=== PATIENT | female | born 1965 | race Caucasian/White ===

== ENCOUNTER 2024-06-26 08:16 | Outpatient (AMB) | payer OTHER, SELFPAY ==
--- NOTE | 2024-06-26 08:17 | AM.OFFWIN_ITS ---
Intake Vital Signs 06/26/24 08:18 Height 5 ft 10 in Weight 271 lb BMI 38.9 BP 118/80 Blood Pressure Location Lt brachial Position Sitting Pulse 115 H Pulse Source Pulse Oximeter Temp 98.6 F Temp Source Oral Pulse Oximetry (%) 96 Oxygen Delivery Method Room Air Intake Visit Reasons: EP fever, throwing up, ? sinus infection Intake Note: Patient here puffiness in face, vomiting, congestion that comes and goes,cough and low grade fevers for about 2 days. Patient Tobacco Use Status: Never used Tobacco Allergies No Known Allergies [No Known Allergies*] Allergy (Unverified 06/26/24 08:19) Do you need a note to return to daycare/school/sports/work: No HPI EP fever, throwing up, ? sinus infection HPI Details This note is constructed using voice recognition software. While every effort has been made to ensure accuracy, chief digital officer errors may have been included. The patient is a 58 year old female who presents to the clinic today with sinus congestion, vomiting bile, low-grade fever for the past 3 days. She notes that she has an extensive history of allergies, typically does have symptoms this time per year, she typically treats with Claritin [id number]. She has not tried anything for her additional symptoms. She denies cough, shortness of caleb th. [facility] Social History Patient Tobacco Use Status: Never used Tobacco Review of Systems Const All systems reviewed & are unremarkable except as noted in HPI and below Physical Exam Vital Signs: Last Vital Signs Temp 98.6 F 06/26/24 08:18 Pulse 115 H 06/26/24 08:18 BP 118/80 06/26/24 08:18 Pulse Ox 96 06/26/24 08:18 Oxygen Delivery Method Room Air 06/26/24 08:18 BMI result Body Mass Index 38.9 Const General: cooperative, healthy appearing, comfortable and no acute distress Orientation/consciousness: patient oriented x3 Limitations: no limitations HEENT Head: Yes normal to inspection Ears: hearing grossly normal bilaterally, external ears normal and TM abnormal retracted General nose exam: Normal external nose present, No nasal discharge present and Abnormal mucous membranes and turbinates present boggy and pale Face and sinus: Yes normal facial exam and Yes sinuses nontender Mouth: Normal oral and palatal mucosa present and moist mucous membranes Throat: Yes tonsils normal, Yes uvula midline, Yes posterior oropharynx abnormal (Erythema), Yes postnasal drainage and Yes cobblestoning Eyes General: appearance normal, both eyes and all related structures Neck Neck: Yes normal visual inspection Resp Effort & Inspection: normal respiratory effort, able to speak in complete sentences, Actively coughing, no respiratory distress, not tachypneic, no tripod positioning and no use of accessory muscles Auscultation: clear to auscultation bilaterally Cardio Rate: regular rate Rhythm: regular rhythm Heart sounds: normal S1 and S2 Skin General skin exam: no rashes or lesions noted Neuro General: patient oriented x3 Extrem General: Yes normal to inspection and Yes no clubbing, cyanosis or edema Assessment & Plan Assessment & Plan (1) Allergic rhinitis: Code(s): J30.9 - Allergic rhinitis, unspecified Qualifiers: Allergic rhinitis trigger: pollen Allergic rhinitis seasonality: seasonal Qualified Code(s): J30.1 - Allergic rhinitis due to pollen Plan: Supportive measures encouraged and reviewed. Advised patient to try a Flonase nasal spray and second-generation antihistamine such as Zyrtec, Claritin, Michaelle or similar. Advised consideration of sinus rinse if needed. Advised patient to follow up with primary care provider with worsening or failure to resolve. We will treat symptomatically with a short burst of prednisone as well as Zofran for nausea. Plan See above for full details and plan. Medications: New prednisone 40 mg (2 x 20 mg) PO DAILY 3 days 6 tabs 0RF ondansetron 4 mg PO Q8H 3 days PRN 9 tabs 0RF nausea and vomiting Coding Level of Care Code Est Pt Level 3 (36081) Diagnoses Seasonal allergic rhinitis due to pollen J30.1 Allergic rhinitis trigger: pollen Allergic rhinitis seasonality: seasonal
[2024-06-26 08:18] VITALS: BP 118/80; PULSE 115; TEMP 37; O2SAT 96; BMI 38.9
== END 2024-06-26 08:59 | disposition home or self-care (01) ==
PROVIDERS: Visit Provider Registered Nurse
DX: J30.1 Allergic rhinitis due to pollen (principal)

== ENCOUNTER 2024-08-20 10:20 | Outpatient (AMB) | payer OTHER, SELFPAY ==
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
[2024-08-20 10:37] VITALS: BP 138/90; PULSE 115; O2SAT 98
== END 2024-08-20 11:36 | disposition home or self-care (01) ==
PROVIDERS: Visit Provider Physician Assistant
DX: M54.6 Pain in thoracic spine (principal); M54.2 Cervicalgia; V89.2XXA Person injured in unspecified motor-vehicle accident, traffic, initial encounter

== ENCOUNTER 2025-03-02 10:26 | Outpatient (AMB) | payer OTHER, SELFPAY ==
[2025-03-02 10:36] VITALS: BP 128/84; PULSE 102; TEMP 36.7; O2SAT 94; BMI 40.2
--- NOTE | 2025-03-02 10:36 | AM.OFFWIN_ITS ---
Intake Vital Signs 03/02/25 10:36 Height 5 ft 10 in Weight 280 lb BMI 40.2 BP 128/84 Blood Pressure Location Lt brachial Position Sitting Pulse 102 H Pulse Source Pulse Oximeter Temp 98.1 F Temp Source Oral Pulse Oximetry (%) 94 Oxygen Delivery Method Room Air Intake Visit Reasons: EP Cyst Intake Note: Pt presents to the office today for c/o a bump behind her right knee. Pt states she was on 02/28/25 at another urgent care and was diagnosed with a bakers cyst. Patient Tobacco Use Status: Never used Tobacco Allergies No Known Allergies [No Known Allergies*] Allergy (Unverified 03/02/25 10:38) HPI HPI Comments History of Present Illness Details History of Present Illness - The patient is a 59-year-old female pr esenting with swelling in the right leg and knee. - The swelling began over the weekend an d was diagnosed as a Gomez's cyst at a different without ultrasound confirmation. - The patient reports no pain, only disc omfort, and has been using an FERMIN bandage for support. - There is no history of smoking, cancer , or use of oral contraceptives, and no recent long travel except for regular three-hour car rides with the most recent being yesterday. - The patient has no history of blood cl ots, pulmonary embolism, or deep vein thrombosis. - Denies shortness of breath or spitting up blood. Physical Exam General: Cooperative, healthy appearing, comfortable, no acute distress and well developed Orientation: Patient oriented x3 Limitations: No limitations Head: Normal to inspection Ears: Hearing grossly normal bilaterally Nose: Normal External nose present Face and sinus: Normal facial exam Eyes: Appearance normal, both eyes and all related structures Neck: Normal visual inspection and Yes full ROM Respiratory: Normal respiratory effort and able to speak in complete sentences. Skin: No rashes or lesions noted Neuro: Patient oriented x3 Extremities: Right leg swollen, particularly at the back of the right knee, consistent with a Gomez's cyst. Upper leg also appears swollen. No pain upon flexion or squeezing, just discomfort. PFSH Social History Patient Tobacco Use Status: Never used Tobacco Review of Systems Const All systems reviewed & are unremarkable except as noted in HPI and below Physical Exam Vital Signs: Last Vital Signs Temp 98.1 F 03/02/25 10:36 Pulse 102 H 03/02/25 10:36 BP 128/84 03/02/25 10:36 Pulse Ox 94 03/02/25 10:36 Oxygen Delivery Method Room Air 03/02/25 10:36 BMI result Body Mass Index 40.2 Assessment & Plan Assessment & Plan (1) Edema of right lower leg: Code(s): R60.0 - Localized edema Plan: - Cannot PERC out, has 4 criteria. Wells Score 3 points = high risk. - An ultrasound is recommended to rule out deep vein thrombosis due to significant swelling, we will get this right now. - If a blood clot is detected, initiation of anticoagulation therapy will be considered, pt does not have PCP. - If the ultrasound confirms a Gomez's cyst, further management will be based on symptomatology and size. - The patient is advised to establish care with a primary care provider for ongoing management. - US/US venous duplex LE RT IMPRESSION: No acute deep venous thrombosis interrogated veins, right lower extremity. Negative for DVT. - patient likely has this swelling from arthritis so we will treat her for arthritis. I recommended she adjunct p.o. diclofenac with the diclofenac gel, use ice, an Fermin wrap and rest it. If after 3 days of the around the clock dosing it with the diclofenac, she still has swelling, she should go to an emergency department for further workup. Also highly recommended she obtain a PCP, I did give her phone numbers of our [place] office as well as [place]. Patient was informed and verbally consented to the use of an ambient scribe for clinic note documentation during this visit. Orders: Orders US venous duplex LE RT Today R60.0 - Localized edema Medications: New diclofenac sodium 50 mg PO Q12H PRN 20 tabs 0RF pain Coding Level of Care Code New Pt Level 4 (99692) Diagnoses Edema of right lower leg R60.0
== END 2025-03-02 11:42 | disposition home or self-care (01) ==
PROVIDERS: Visit Provider Physician Assistant
DX: R60.0 Localized edema (principal)

== ENCOUNTER → 2025-03-02 10:26 | Outpatient (BNVA) | payer OTHER, SELFPAY | PROVIDERS: Visit Provider Physician Assistant ==

== ENCOUNTER 2025-03-02 10:57 | Outpatient (REF) | payer OTHER, SELFPAY ==
--- NOTE | ~2025-03-02 | US_ITS ---
EXAMINATION: US TRIPLEX LOWER EXTREMITY, RIGHT CLINICAL INFORMATION: Swelling, pain, right lower extremity. COMPARISON: None available. TECHNIQUE: Color-flow triplex imaging with spectral analysis and compression Doppler were performed on the right lower extremity. FINDINGS: Respiratory variation, normal compression and augmented flow demonstrated throughout the interrogated common femoral vein, superficial femoral vein, profunda femoral vein, popliteal vein and midcalf peroneal and posterior tibial venous segments . There is no Gomez's cyst. US/US venous duplex LE RT IMPRESSION: No acute deep venous thrombosis interrogated veins, right lower extremity. Negative for DVT. Electronically signed by: Aashish Leal MD 03/02/2025 11:28 AM EDT
== END 2025-03-02 10:58 | disposition home or self-care (01) ==
LOC: HO.HMGCX 10:57
PROVIDERS: Visit Provider Physician Assistant
DX: R60.0 Localized edema (principal); M25.561 Pain in right knee
CPT/HCPCS: 93971

== ENCOUNTER → 2025-03-02 11:02 | Outpatient (BNV) | payer OTHER, SELFPAY | PROVIDERS: Visit Provider Radiology Diagnostic Radiology | DX: R22.41 Localized swelling, mass and lump, right lower limb (principal); M79.661 Pain in right lower leg | CPT/HCPCS: 93971 ==

== ENCOUNTER 2025-03-12 13:57 | Outpatient (AMB) | payer OTHER, SELFPAY ==
--- NOTE | 2025-03-12 14:02 | A.OFFPC_ITS ---
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 Accompanied by: Self / Same As Patient Allergies No Known Allergies (No Known Allergies*) Allergy (Unverified 03/12/25 14:32) Medication List - Last Reconciled 03/12/25 by Elisabeth Mir PA-C No Known Home Meds Tobacco use date assessed: 03/12/25 Dental Screening Dental Screen Date: 03/12/25 Did you have a dental visit in the last 12 months?: Yes Did you have a dental problem in the last 6 months where you did not have access to dental care?: No Was dental information given to patient?: Patient has dentist HPI [facility] HPI Details The patient is a 59-year-old female presenting to [facility] with a new primary care provider along with right posterior knee swelling The patient reports swelling in the right posterior knee, which has been present for approximately two weeks. The swelling is associated with a palpable hard area and mild tenderness, causing discomfort during ambulation. The patient recalls an incident about a month and a half ago when she descended stairs awkwardly, which may have contributed to the current symptoms. The patient has undergone an ultrasound, which did not reveal significant findings, and x-rays were reportedly not performed despite being expected. A CT scan has been ordered to further evaluate the condition, with concerns about potential soft tissue or muscular involvement. The patient also has a history of varicose veins, which are more prominent on the right leg and may contribute to the swelling. A referral to vascular surgery is considered for further evaluation and potential intervention. The patient has no history of diabetes or kidney disease and is not allergic to contrast media. She denies any current medication use except for allergy pills and occasional wine consumption. The patient reports elevated blood pressure readings during the visit, with a measurement of 145/76 mmHg, which may be attributed to anxiety. She has been advised to monitor her blood pressure at home and follow up in one month with recorded readings. Preventative care measures discussed include colon cancer screening with a stool test and mammogram screening. Social History - Substance use: Denies smoking or drug use, consumes occasional wine - Exercise: Previously very active, no c urrent exercise routine mentioned [facility] Medical History Colon cancer screening Breast cancer screening Preventative health care Establishing care with new doctor, encounter for Elevated blood pressure reading Morbid obesity with BMI of 40.0-44.9, adult Varicose veins of both legs with edema Right leg pain Right leg swelling Family History Father No problems noted. Mother No problems noted. Social History Housing: House Alcohol intake: current Alcohol intake frequency: holidays/special occasions only Patient Tobacco Use Status: Never used Tobacco service: No Current occupational status: unemployed Cognitive needs: No Hearing needs: No Vision needs: Yes (rx glasses) Questionnaire PHQ-9 Over the last 2 weeks, how often have you been bothered by any of the following problems? 1. Little interest or pleasure in doing things: not at all 2. Feeling down, depressed, or hopeless: not at all 3. Trouble falling or staying asleep, or sleeping too much: not at all 4. Feeling tired or having little energy: not at all 5. Poor appetite or overeating: not at all 6. Feeling bad about yourself - or that you are a failure or have let yourself or your family down: not at all 7. Trouble concentrating on things, such as reading the newspaper or watching television: not at all 8. Moving or speaking so slowly that other people could have noticed. Or the opposite - being so fidgety or restless that you have been moving around a lot more than usual: not at all 9. Thoughts that you would be better off or of hurting yourself in some way: not at all Total score: 0 Depression Screening Interpretation: Negative Depression Screening Done: Yes 18271 - PHQ-9 Billing: Yes Source: Developed by Drs. Garo Rivera, Sharyn Mancia, Isaias Fierro and colleagues, with an educational citlali from [employer]. Thrive Questionnaire Date Thrive assessed: 03/12/25 I am a: Patient What is your living situation today?: I have a steady place to live Within the past 12 months, did the food you bought not last and you didn't have the money to get more?: Never true Within the past 12 months, did you worry whether your food would run out before you got money to buy more?: Never true Do you have trouble paying for medicines?: No Do you have trouble getting transportation to medical appointments?: No Do you have trouble paying your heating and electricity bill?: No Do you have trouble taking care of your child, family member or friend?: No Do you have trouble with day-to-day activities such as bathing, preparing meals, shopping, managing finances, etc.?: No Are you currently unemployed and looking for a job?: No Are you interested in more education?: No Please select the resources that you would like help with: None THRIVE Score: 0 AUDIT C Alcohol Use Questionnaire (AUDIT-C) 1. How often do you have a drink containing alcohol?: Monthly or less 2. How many drinks containing alcohol do you have on a typical day when you are drinking?: 1 or 2 3. How often do you have six or more drinks on one occasion?: Never Total Score: 1 Score Reviewed/Action Taken: No DENISE-7 AMB Questionnaire DENISE-7 Date DENISE - 7 assessed: 03/12/25 Feeling nervous, anxious, or on edge: 0 = Not at all Not being able to stop or control worryin = Not at all Worrying too much about different things: 0 = Not at all Trouble relaxin = Not at all Being so restless that it is hard to sit still: 0 = Not at all Becoming easily annoyed or irritable: 0 = Not at all Feeling afraid as if something awful might happen: 0 = Not at all Total DENISE-7 score (0-4 normal; 5-9 mild; 10-14 moderate; 15-21 severe): 0 Source: Developed by Drs. Garo Rivera, Sharyn Mancia, Isaias Fierro and colleagues, with an educational citlali from [employer] DENISE-7 Assessment Billing DENISE-7 Assessment Tool: DENISE-7 Assessment 10508 Review of Systems Const Details: - Musculoskeletal: Reports right posterior knee swelling and discomfort - Cardiovascular: Denies chest pain, reports elevated blood pressure during visit - Gastrointestinal: Denies black or bloody stools, abdominal pain, unintentional weight loss - Neurological: Denies dizziness, headaches, changes in vision Physical exam (Primary Care) Vital Signs: Last Vital Signs Temp 98.0 F 03/12/25 14:13 Pulse 108 H 03/12/25 14:13 Resp 20 03/12/25 14:13 BP 156/73 H 03/12/25 14:13 Pulse Ox 96 03/12/25 14:13 Oxygen Delivery Method Room Air 03/12/25 14:13 Care Plan Goal for BP management: <140/90 patient to monitor her blood pressure at home for the next month and return with blood pressure log BMI result Body Mass Index 42.3 BMI Assessment/Plan discussion: High BMI High, discussed plan: lifestyle, weight reduction, dietary, physical activity and alcohol moderation Tobacco/Smoking Status: Tobacco use Status Tobacco use date assessed 03/12/25 03/12/25 14:09 Patient Tobacco Use Status Never used Tobacco 03/12/25 14:19 PHQ-9: PHQ-9 Score PHQ-9: Total score 0 03/12/25 14:09 Depression Screening Interpretation: Negative Thrive Assessment: Date of Thrive Assessment Date Thrive assessed 03/12/25 03/12/25 14:09 Const Other: Appearance: Alert. Oriented X3. No acute distress. Head: Normal external exam. Normocephalic. Atraumatic. Eyes: Pupils are equal, round, and reactive to light. Extraocular movements intact. Conjunctiva and sclera normal. Eyelids normal. Ears: External auditory canal normal. Tympanic membranes normal. Throat: Pharynx normal. Uvula midline. Moist mucous membranes. Neck: Normal inspection. Neck supple. Full range of motion. No adenopathy. Thyroid Normal. No meningeal signs. No neck mass noted. Cardiovascular: Normal heart rate and rhythm. Heart sound normal. No murmurs noted. Pulses normal throughout. Blood pressure recorded at 145/76. Respiratory: No respiratory distress. Painless inspiration. Breath sounds normal. No wheezes/rales/rhonchi noted. Chest nontender. No accessory muscle usage noted or decreased air movement noted. Abdomen: Soft and nontender. Bowel sounds normal in all 4 quadrants. No distention noted. No organomegaly noted. No visible injury noted. Back: No costovertebral angle tenderness. Full range of motion noted. Skin: Skin warm and dry. Normal skin color. Normal skin turgor. No rashes/lesions/lacerations noted. Extremities: Right posterior knee swelling noted. Mild tenderness to the right posterior knee/leg. Noted to have varicose veins. Patient noted to have full range of motion of the right knee and left knee. No obvious joint effusion. No signs of infection. No rashes or lesions noted. Otherwise all other extremities exhibit normal range of motion nontender. Neuro: Oriented X 3. No motor deficit. No sensory deficit. Reflexes normal. Results Reviewed Results Reviewed: - Imaging: Ultrasound of the knee showed no significant findings Coding Level of Care Code New Pt Level 5 (73994) Complex EM visit Add On G2211 Diagnoses Establishing care with new doctor, encounter for Z76.89 Right leg swelling M79.89 Varicose veins of both legs with edema I83.893 Preventative health care Z00.00 Breast cancer screening Z12.39 Colon cancer screening Z12.11 Morbid obesity with BMI of 40.0-44.9, adult E66.01; Z68.41 Elevated blood pressure reading R03.0 Additional Codes PHQ-9 - 05650 - PHQ-9 Billing: Yes ([id number]) DENISE-7 Assessment Billing - DENISE-7 Assessment Tool: DENISE-7 Assessment 17192 ([id number]) Time Spent (min) 45 Assessment & Plan Assessment & Plan (1) Establishing care with new doctor, encounter for: Code(s): Z76.89 - Persons encountering health services in other specified circumstances Category: Medical (2) Right leg swelling: Code(s): M79.89 - Other specified soft tissue disorders Category: Medical Plan: A CT scan of the right knee has been ordered to assess for any soft tissue or muscular abnormalities, given the negative ultrasound findings. An x-ray will also be performed to rule out any bony abnormalities. (3) Varicose veins of both legs with edema: Code(s): I83.893 - Varicose veins of bilateral lower extremities with other complications Category: Medical Plan: Referral to vascular surgery is planned for evaluation and potential intervention, such as vein stripping, to address the varicose veins and associated swelling. (4) Preventative health care: Code(s): Z00.00 - Encounter for general adult medical examination without abnormal findings Category: Medical (5) Breast cancer screening: Code(s): Z12.39 - Encounter for other screening for malignant neoplasm of breast Category: Medical Plan: A mammogram screening has been ordered as part of routine preventative care. (6) Colon cancer screening: Code(s): Z12.11 - Encounter for screening for malignant neoplasm of colon Category: Medical Plan: A stool test for colon cancer screening has been recommended, with further evaluation dependent on the results. (7) Morbid obesity with BMI of 40.0-44.9, adult: Code(s): E66.01 - Morbid (severe) obesity due to excess calories; Z68.41 - Body mass index [BMI] 40.0-44.9, adult Category: Medical Plan: Patient to improve diet and exercise regimen. Condition is chronic and stable will continue to monitor. (8) Elevated blood pressure reading: Code(s): R03.0 - Elevated blood-pressure reading, without diagnosis of hypertension Category: Medical Plan: The patient is advised to monitor blood pressure at home and record readings three to four times a week, with a follow-up appointment scheduled in one month to assess the need for further management. Plan Plan Patient was informed and verbally consented to the use of an ambient scribe for clinic note documentation during this visit. 1. Right Posterior Knee Swelling A CT scan of the right knee has been ordered to assess for any soft tissue or muscular abnormalities, given the negative ultrasound findings. An x-ray will also be performed to rule out any bony abnormalities. 2. Possible Arthritis The possibility of arthritis is being considered, and imaging studies will help in further evaluation. 3. Varicose Veins Referral to vascular surgery is planned for evaluation and potential intervention, such as vein stripping, to address the varicose veins and associated swelling. 4. Hypertension The patient is advised to monitor blood pressure at home and record readings three to four times a week, with a follow-up appointment scheduled in one month to assess the need for further management. 5. Preventative Care: Colon Cancer Screening With Stool Test A stool test for colon cancer screening has been recommended, with further evaluation dependent on the results. 6. Preventative Care: Mammogram Screening A mammogram screening has been ordered as part of routine preventative care. I discussed with the patient the need for further imaging to evaluate the right posterior knee swelling, including a CT scan and x-ray, to rule out any underlying conditions such as soft tissue abnormalities or arthritis. We also talked about the potential role of varicose veins in her symptoms and the possibility of a referral to vascular surgery for further evaluation and treatment options. I advised the patient to monitor her blood pressure at home and record the readings, with a follow-up appointment in one month to assess the need for further management. Preventative care measures, including colon cancer screening with a stool test and mammogram screening, were also discussed as part of her wellness visit. Orders: Orders CT lower leg RT w IV con Today M79.604 - Pain in right leg, M79.89 - Other specified soft tissue disorders Lipid Panel Today Z00.00 - Encounter for general adult medical examination without abnormal findings Erythrocyte Sedimentation Rate Today Z00.00 - Encounter for general adult medical examination without abnormal findings Vitamin D 25-OH Total Today Z00.00 - Encounter for general adult medical examination without abnormal findings Hemoglobin A1c Today Z00.00 - Encounter for general adult medical examination without abnormal findings MM screening mammo BI Today Z12.31 - Encounter for screening mammogram for malignant neoplasm of breast Complete Blood Count Auto Diff Today Z00.00 - Encounter for general adult medical examination without abnormal findings Comprehensive [place]. Panel Fast Today Z00.00 - Encounter for general adult medical examination without abnormal findings C Reactive Protein Today Z00.00 - Encounter for general adult medical examination without abnormal findings Liver Panel Today Z00.00 - Encounter for general adult medical examination without abnormal findings Magnesium Today Z00.00 - Encounter for general adult medical examination without abnormal findings Vitamin B12 and Folate Today Z00.00 - Encounter for general adult medical examination without abnormal findings TSH reflex Free T4 Today Z00.00 - Encounter for general adult medical examination without abnormal findings XR knee RT 4V Today M79.604 - Pain in right leg, M79.89 - Other specified soft tissue disorders Referrals Cologuard Test Z12.11 - Encounter for screening for malignant neoplasm of colon, Z12.12 - Encounter for screening for malignant neoplasm of rectum Vascular Surgery Referral I83.893 - Varicose veins of bilateral lower extremities with other complications, M79.604 - Pain in right leg, M79.89 - Other specified soft tissue disorders Patient Instructions: - Schedule and complete the CT scan and x-ray for your right knee. - Monitor your blood pressure at home three to four times a week and record the readings. - Complete the stool test for colon cancer screening as instructed. - Attend the scheduled mammogram screening. - Follow up in one month with your recorded blood pressure readings.
[2025-03-12 14:13] VITALS: BP 145/76; PULSE 99; RESP 20; TEMP 36.7; O2SAT 96; BMI 42.3
== END 2025-03-12 14:42 | disposition home or self-care (01) ==
PROVIDERS: Visit Provider Physician Assistant Medical
DX: Z76.89 Persons encountering health services in other specified circumstances (principal); M79.89 Other specified soft tissue disorders; I83.893 Varicose veins of bilateral lower extremities with other complications; Z00.00 Encounter for general adult medical examination without abnormal findings; Z12.39 Encounter for other screening for malignant neoplasm of breast; Z12.11 Encounter for screening for malignant neoplasm of colon; E66.01 Morbid (severe) obesity due to excess calories; Z68.41 Body mass index [BMI] 40.0-44.9, adult; R03.0 Elevated blood-pressure reading, without diagnosis of hypertension

== ENCOUNTER → 2025-03-12 13:57 | Outpatient (BNVA) | payer OTHER, SELFPAY | PROVIDERS: Visit Provider Physician Assistant Medical | DX: Z00.00 Encounter for general adult medical examination without abnormal findings (principal); M25.461 Effusion, right knee; M79.89 Other specified soft tissue disorders; I83.893 Varicose veins of bilateral lower extremities with other complications; E66.01 Morbid (severe) obesity due to excess calories; R03.0 Elevated blood-pressure reading, without diagnosis of hypertension; I10 Essential (primary) hypertension; Z68.41 Body mass index [BMI] 40.0-44.9, adult; Z76.89 Persons encountering health services in other specified circumstances | CPT/HCPCS: 96127 ==

== ENCOUNTER 2025-03-13 08:54 | Outpatient (REF) | payer OTHER, SELFPAY ==
--- NOTE | ~2025-03-13 | XR_ITS ---
EXAMINATION: XR KNEE, RIGHT CLINICAL INFORMATION: M79.604 - Pain in right leg COMPARISON: None available. TECHNIQUE: AP oblique lateral and sunrise views of the right knee. FINDINGS: Mild joint space narrowing involving the medial compartment. No acute cortical disruption or malalignment. No lytic or blastic lesions. Small volume effusion, suprapatellar bursa joint . XR/XR knee RT 4V IMPRESSION: Mild medial compartment osteoarthrosis. Probable small volume, suprapatellar bursa. Electronically signed by: Aashish Leal MD 03/13/2025 09:51 AM EDT
[2025-03-13 10:21] LABS: MANUAL DIFF FLAG NO
[2025-03-13 10:40] LABS: Basophils Absolute Auto 0.1 X10*3/uL (0.0-0.2); Eosinophils Absolute Auto 0.1 X10*3/uL (0.0-0.4); Hematocrit 45.7 % (37.0-47.0); Hemoglobin 15.1 g/dl (12.0-16.0); Imm Gran Abs Auto 0.02 X10*3/uL (0.00-0.03); Imm Gran Pct Auto 0.3 % (0.0-0.4); Lymphocytes Absolute Auto 1.2 X10*3/uL (1.2-4.9); Lymphocytes Percent Auto 20.2 % (20-40); Mean Corpuscular Hemoglobin 30.6 pg (27.0-33.0); Mean Corpuscular Volume 92.5 fL (80.0-98.0); Mean Platelet Volume 10.4 fL (9.4-12.3); Monocytes Absolute Auto 0.5 X10*3/uL (0.1-1.2); Neutrophils Absolute Auto 4.1 x10*3/uL (2.0-8.3); Neutrophils Percent Auto 67.5 % (45-73); Platelet Count 280 X10*3/uL (160-400); Red Blood Count 4.94 X10*6/uL (4.20-5.50); Red Cell Distribution Width 12.7 % (11.0-16.0)
[2025-03-13 10:47] LABS: Estimated Average Glucose 117 mg/dL; Hemoglobin A1C 152.6407 umol/L; Hemoglobin A1c % 5.7 % (<6.0)
[2025-03-13 11:14] LABS: Alanine Aminotransferase 19 U/L (0-31); Albumin Level 4.6 g/dL (3.5-5.0); Alkaline Phosphatase 91 U/L (39-117); Anion Gap 15 (12-20); Aspartate Amino Transferase 27 U/L (5-31); Bilirubin Direct 0.3 mg/dL (0.0-0.5); Blood Urea Nitrogen 13 mg/dL (9-16); C Reactive Protein 0.97 mg/dL (< or = 0.50); Calcium 9.6 mg/dL (8.4-10.2); Carbon Dioxide 26 mmol/L (22-29); Chloride 103 mmol/L (96-108); Cholesterol 158 mg/dL (<200); Estimated Glomerular Filt Rate > 60; Glucose Fasting 106 mg/dL (60-99); HDL Cholesterol 53 mg/dL (>40); LDL Cholesterol Calculated 86 mg/dL (<100); Potassium 4.1 mmol/L (3.3-5.1); Sodium 140 mmol/L (135-145); Total Protein 8.1 g/dL (6.5-8.0); Triglycerides 95 mg/dL (<150)
[2025-03-13 11:19] LABS: Erythrocyte Sedimentation Rate 17 MM/HR (0-20)
[2025-03-13 11:33] LABS: TSH reflex Free T4 2.58 uIU/mL (0.32-4.0); Vitamin D 25-OH Total 30.8 ng/mL (>30)
[2025-03-13 11:37] LABS: Folate 10.9 ng/mL (> or = 4.0); Vitamin B12 291 pg/mL (200-900)
== END 2025-03-13 08:55 | disposition home or self-care (01) ==
LOC: HO.HMGCX 08:54
PROVIDERS: PCP Physician Assistant Medical; Visit Provider Physician Assistant Medical
DX: Z00.00 Encounter for general adult medical examination without abnormal findings (principal); M79.89 Other specified soft tissue disorders; M79.604 Pain in right leg; Z13.6 Encounter for screening for cardiovascular disorders; Z13.1 Encounter for screening for diabetes mellitus
CPT/HCPCS: 36415; 73564; 80053; 80061; 80076; 82248; 82306; 82607; 82746; 83036; 83735; 84443; 85025; 85652; 86140

== ENCOUNTER → 2025-03-13 09:33 | Outpatient (BNV) | payer OTHER, SELFPAY | PROVIDERS: PCP Physician Assistant Medical; Visit Provider Radiology Diagnostic Radiology | DX: M17.11 Unilateral primary osteoarthritis, right knee (principal) | CPT/HCPCS: 73564 ==

== ENCOUNTER 2025-04-09 09:06 | Outpatient (AMB) | payer OTHER, SELFPAY ==
--- NOTE | 2025-04-09 09:10 | MHC.OFFVIS ---
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 Pt states she has had for a very long time and has swelling, states swelling is worse around knee. 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 Complaints include pain over varicosities, swelling of lower extremities, cramping, fatigue, and heaviness of the lower extremities. It has been affecting there daily activities including walking. It is noted more so in right leg. Patient denies any previous venous surgery or injections. Patient denies any history of DVT/ PE. Patient denies any history of phlebitis. Trial of compression includes - [id number] They now present for vascular evaluation regarding their varicose veins. [facility] Medical History Suprapatellar bursitis of right knee Osteoarthrosis of knee Colon cancer screening Breast cancer screening Preventative health care Establishing care with new doctor, encounter for Elevated blood pressure reading Morbid obesity with BMI of 40.0-44.9, adult Varicose veins of both legs with edema Right leg pain Right leg swelling Family History Father No problems noted. Mother No problems noted. Social History Housing: House Alcohol intake: current Alcohol intake frequency: holidays/special occasions only Patient Tobacco Use Status: Never used Tobacco service: No Current occupational status: unemployed Cognitive needs: No Hearing needs: No Vision needs: Yes (rx glasses) Review of Systems Const Reports as per HPI ENT Reports no additional complaints Card Denies chest pain, Denies chest pain at rest and Denies chest pain with activity Resp Denies chest congestion and Denies cough GI Reports no additional complaints Musc Details: pain over varicosities, aching of lower extremities, swelling, cramping, heaviness and tiredness, itching Denies abnormal gait Skin/Breast Reports pruritus and Denies wounds Neuro Reports no additional complaints and Denies abnormal gait Psych Denies no additional complaints Physical Exam Vital Signs: BMI result Body Mass Index 39.6 Const General: cooperative, healthy appearing and comfortable Orientation/consciousness: oriented to person, oriented to place and oriented to time Neck Carotids: no bruits Chest Chest palpation & inspection: normal inspection of the chest and normal palpation of entire chest wall Resp Effort & Inspection: normal respiratory effort and able to speak in complete sentences Cardio Rate: regular rate Heart sounds: S1 normal heart sound present and S2 normal heart sound present Peripheral pulses: Peripheral pulses 2+ throughout GI Inspection: Yes normal to inspection Skin Other: +2 edema, large rope-like varicosities greater than 4 mm right medial thigh and calf CEAP Classification C4 - skin color changes Ep - Etiology Primary As - superficial veins P - reflux General skin exam: dry skin Neuro General: oriented to person, oriented to place and oriented to time Extrem Right lower extremity: full ROM, normal capillary refill and edema Left lower extremity: full ROM, normal capillary refill and edema Psych Mental Status: mental status grossly normal Assessment & Plan Assessment & Plan (1) Varicose veins of right lower extremity with inflammation: Code(s): I83.11 - Varicose veins of right lower extremity with inflammation Category: Medical Plan: In short, the patient has evidence of venous insufficiency. I have discussed the pathophysiology with the patient. In addition I have provided informational material regarding venous disease to the patient. We have discussed conservative measures including compression, elevation, and exercise. I have also provided a handout regarding appropriate use of compression stockings and where to purchase good compression stockings as well. I have taken the liberty of ordering venous insufficiency testing with the patient. They will follow up with me after testing. The patient had an opportunity to ask questions regarding the treatment plan. All questions were answered. Imaging studies, laboratory studies and physical exam results were discussed and reviewed in detail. No major barriers to understanding were identified. The patient expressed understanding and agreement with the above treatment plan. The patient is aware they should contact our office by phone for worsening of the current condition or the appearance of new symptoms. Thank you for allowing me to participate in the vascular care of this patient. If you have any questions or concerns regarding the treatment for the above condition please do not hesitate to contact me. The office telephone contact is [phone]. This note is constructed using voice recognition software. While every effort has been made to ensure accuracy, evs manager errors may have been included. Thank you for allowing me to participate in the care of your patient. Yours sincerely, Philip Crabtree MD, FACS, R.P.V.I. Orders: Orders US venous duplex LE BI Today I83.11 - Varicose veins of right lower extremity with inflammation Coding Level of Care Code New Pt Level 4 (62092) Diagnoses Varicose veins of right lower extremity with inflammation I83.11
[2025-04-09 09:12] VITALS: BMI 39.6
--- OUTSIDE RECORDS SUMMARY | 2025-04-09 09:33 | XMS_ITS | Clinical Summary ---
Author Organization [facility] Address [address] [place] [phone] Phone Care Team Providers Care Occupational Therapy Assistant Name Role Phone Pcp, Unknown Primary Care Provider Unavailabl e Allergies No known active allergies Medications Medication-Free Text Take by mouth daily. Allergy relief Active cetirizine (ZYRTEC) 10 MG tablet Take 10 mg by mouth daily. Active Active Problems Problem Noted Date Diagnosed Date Posterior vitreous detachment, both eyes 014 Allergic rhinitis Immunizations Immunization Administration Dates Next Due COVID-19 (Pre-07/09) Pfizer Vaccine, mRNA, PF Td (adult),2 Lf Tetanus Toxoid, PF, Adsorbed Tdap 10/29/2012 Family History Medical History Relation Comments Arthritis Mother Cancer Mother Relation Status Comments Mother Social History Tobacco Use Types Packs/Day Years Used Date Smoking Tobacco: Never Smokeless Tobacco: Never Alcohol Use Standard Drinks/Week Comments Yes 2 (1 standard drink = 0.6 oz pur e alcohol) 2 glasses of wine per week Education Answer Date Recorded Are you interested in more education? Not on su e 01/12/2023 Are you concerned about learning? Not on file 01/12/2023 No 01/12/2023 No 01/12/2023 Digital Access Answer Date Recorded No 02/10/2023 No 02/10/2023 No 02/10/2023 Reliable internet access at home? Not on file 02/10/2023 Device with a working camera? Not on file Comments No Sex and Gender Information Value Date Recorded Sex Assigned at Female 02/23/2020 7:19 AM EDT Legal Sex Female 1:43 PM EST Gender Identity Female 02/23/2020 7:19 AM EDT Sexual Orientation Straight 02/23/2020 7: 19 AM EDT Last Filed Vital Signs Vital Sign Reading Time Taken Comments Blood Pressure 142/78 02/24/2020 9:34 PM EDT Pulse 116 02/24/2020 2:55 PM EDT Temperature 37.4 C (99.3 F) 02/24/2020 2:55 PM EDT Respiratory Rate 16 02/24/2020 2:55 PM EDT Oxygen Saturation 95% 02/24/2020 2:55 PM EDT Inhaled Oxygen Concentration - - Weight 108.5 kg (239 lb 3.2 oz) 02/24/2020 2:55 PM EDT Height 172.7 cm (5' 8 ) 02/24/2020 2:55 PM EDT Body Mass Index 36.37 02/24/2020 2:55 PM EDT Plan of Treatment Health Maintenance Due Date Last Done Comments HEPATITIS C SCREENING 1981 HIV ONE-TIME SCREENING (18-6 5 YEARS) 1981 COLOGUARD 2008 COLONOSCOPY 2008 COLORECTAL CANCER SCREENING 2008 FIT TEST 2008 FOBT 2008 SIGMOIDOSCOPY 2008 VIRTUAL COLONOSCOPY 2008 PNEUMOCOCCAL VACCINES (50+ years) (1 of 1 - PCV) 2013 ZOSTER VACCINES (1 of 2) 2013 PAP SMEAR 10/24/2014 10/24/2011 LIPID PANEL 10/29/2017 10/29/2012, 10/29/2012, 10/29/2012 MAMMOGRAM 12/27/2020 12/27/2018 DEPRESSION SCREENING 02/23/2021 02/24/2020 COVID-19 VACCINE (2 - 2023-2 5 season) 2024 08/15/2021 Adult Td,Tdap Booster 02/13/2028 02/12/2018 , 10/29/2012 RSV VACCINE (1 - 1-dose 75+ series) 2038 SMOKING STATUS SCREENING (On ce After 26 Yrs) Completed 02/24/2020 HEPATITIS A VACCINES Aged Out No long er eligible based on patient's age to complete this topic HIB VACCINES Aged Out No longer eligi ble based on patient's age to complete this topic MENINGOCOCCAL VACCINES (ACWY) Aged Out No longer eligible based on patient's age to complete this topic MENINGOCOCCAL VACCINES (B) Aged Out N o longer eligible based on patient's age to complete this topic Medical Devices Not on file Procedures Procedure Name Priority Date/Time Associated Diagnosis Comments HM MAMMOGRAPHY Routine 12/27/2018 OUTSIDE HDL Routine 10/29/2012 HM PAP SMEAR FOR RESULT ENTRY ONLY Routine 10/24/2011 from Last 3 Months or Most Recently Relevant to Health Maintenance Results * MAMMOGRAPHY FOR RESULT ENTRY ONLY (12/27/2018) HM Mammogram neg [facility] Provider HEALTH MAINTENANCE Final Result * Outside HDL (10/29/2012) HDL - External 66 40 - 80 mg/dL [facility] Provider LAB BLOOD ORDERABLES Shanita l Result * PAP SMEAR FOR RESULT ENTRY ONLY (10/24/2011) Pap smear neg Historical Provider HEALTH MAINTENANCE Final Result from Last 3 Months or Most Recently Relevant to Health Maintenance Insurance [facility] [employer] [facility] [place] [facility] [place] Address: [facility] [address] [place] [address] Care Teams Occupational Therapy Assistant Relationship Specialty Start Date End Date Pcp, Unknown PCP - General 03/13/23 Additional Source Comments The information contained in this document represents components of the legal health record. It is not the complete legal health record.[facility]
== END 2025-04-09 09:56 | disposition home or self-care (01) ==
LOC: HO.HVS 09:07
PROVIDERS: PCP Physician Assistant Medical; Visit Provider Surgery Vascular Surgery
DX: I83.11 Varicose veins of right lower extremity with inflammation (principal)
CPT/HCPCS: 99204

== ENCOUNTER 2025-04-13 08:53 | Outpatient (AMB) | payer OTHER, SELFPAY ==
--- NOTE | 2025-04-13 08:52 | MHC.PC.OV ---
Vital Signs 04/13/25 08:54 Height 5 ft 10 in Weight 260 lb 4 oz BMI 37.3 BP 138/79 Blood Pressure Location Rt brachial Position Sitting Respiration 20 Pulse 97 Pulse Source Pulse Oximeter Temp 97.3 F Temp Source Temporal Artery Scan Pulse Oximetry (%) 97 Oxygen Delivery Method Room Air Intake Visit Reasons: 1 month follow up Transportation Worker Required: No Accompanied by: Self / Same As Patient Allergies No Known Allergies (No Known Allergies*) Allergy (Verified 04/13/25 09:17) Medication List - Last Reconciled 04/13/25 by Elisabeth Mir PA-C No Known Home Meds Tobacco use date assessed: 03/12/25 Dental Screening Dental Screen Date: 03/12/25 Did you have a dental visit in the last 12 months?: Yes Did you have a dental problem in the last 6 months where you did not have access to dental care?: No Was dental information given to patient?: Patient has dentist HPI 1 month follow up HPI Details The patient is a 59-year-old female presenting with hypertension and knee pain. The patient has a history of hypertension, which she monitors at home. Although her blood pressure readings are generally stable at home, they tend to be elevated during clinic visits. She has been advised to continue monitoring her blood pressure and consider using an automatic blood pressure monitor for more consistent readings. The patient reports knee pain, which was evaluated by an visitor services specialist. An X-ray revealed mild medial compartment osteoarthrosis and a small amount of fluid in the suprapatellar bursa, indicating inflammation. She is currently awaiting further evaluation and treatment planning, which may include physical therapy after other interventions are completed. The patient also has varicose veins, for which she is using compression stockings. She is scheduled for a venous duplex ultrasound to assess the veins and determine the need for any surgical intervention. The patient is in a prediabetic state with a hemoglobin A1c of 5.7%. She has made dietary changes to reduce sugar and carbohydrate intake, aiming to prevent progression to diabetes. Preventative care measures include a recent negative Cologuard test for colon cancer screening. Social History - Employment: Works at times, indicating a flexible work schedule. - Exercise: Walks her dog, suggesting some level of physical activity. [facility] Medical History (Updated 04/13/25 @ 15:45 by Elisabeth Mir PA-C) Prediabetes Suprapatellar bursitis of right knee Osteoarthrosis of knee Colon cancer screening (~03/19/25) Breast cancer screening Preventative health care Establishing care with new doctor, encounter for Elevated blood pressure reading Morbid obesity with BMI of 40.0-44.9, adult Varicose veins of both legs with edema Right leg pain Right leg swelling Family History Father No problems noted. Mother No problems noted. Social History Housing: House Alcohol intake: current Alcohol intake frequency: holidays/special occasions only Patient Tobacco Use Status: Never used Tobacco service: No Current occupational status: unemployed Cognitive needs: No Hearing needs: No Vision needs: Yes (rx glasses) Questionnaire PHQ-9 Over the last 2 weeks, how often have you been bothered by any of the following problems? 1. Little interest or pleasure in doing things: not at all 2. Feeling down, depressed, or hopeless: not at all 3. Trouble falling or staying asleep, or sleeping too much: not at all 4. Feeling tired or having little energy: not at all 5. Poor appetite or overeating: not at all 6. Feeling bad about yourself - or that you are a failure or have let yourself or your family down: not at all 7. Trouble concentrating on things, such as reading the newspaper or watching television: not at all 8. Moving or speaking so slowly that other people could have noticed. Or the opposite - being so fidgety or restless that you have been moving around a lot more than usual: not at all 9. Thoughts that you would be better off or of hurting yourself in some way: not at all Total score: 0 Depression Screening Interpretation: Negative Depression Screening Done: Yes 04106 - PHQ-9 Billing: Yes Source: Developed by Drs. Garo Rivera, Sharyn Mancia, Isaias Fierro and colleagues, with an educational citlali from [employer]. Thrive Questionnaire Date Thrive assessed: 03/12/25 I am a: Patient What is your living situation today?: I have a steady place to live Within the past 12 months, did the food you bought not last and you didn't have the money to get more?: Never true Within the past 12 months, did you worry whether your food would run out before you got money to buy more?: Never true Do you have trouble paying for medicines?: No Do you have trouble getting transportation to medical appointments?: No Do you have trouble paying your heating and electricity bill?: No Do you have trouble taking care of your child, family member or friend?: No Do you have trouble with day-to-day activities such as bathing, preparing meals, shopping, managing finances, etc.?: No Are you currently unemployed and looking for a job?: No Are you interested in more education?: No Please select the resources that you would like help with: None THRIVE Score: 0 AUDIT C Alcohol Use Questionnaire (AUDIT-C) 1. How often do you have a drink containing alcohol?: Monthly or less 2. How many drinks containing alcohol do you have on a typical day when you are drinking?: 1 or 2 3. How often do you have six or more drinks on one occasion?: Never Total Score: 1 Score Reviewed/Action Taken: No DENISE-7 AMB Questionnaire DENISE-7 Date DENISE - 7 assessed: 03/12/25 Feeling nervous, anxious, or on edge: 0 = Not at all Not being able to stop or control worryin = Not at all Worrying too much about different things: 0 = Not at all Trouble relaxin = Not at all Being so restless that it is hard to sit still: 0 = Not at all Becoming easily annoyed or irritable: 0 = Not at all Feeling afraid as if something awful might happen: 0 = Not at all Total DENISE-7 score (0-4 normal; 5-9 mild; 10-14 moderate; 15-21 severe): 0 Source: Developed by Drs. Garo Rivera, Sharyn Mancia, Isaias Fierro and colleagues, with an educational citlali from [employer]. DENISE-7 Assessment Billing DENISE-7 Assessment Tool: DENISE-7 Assessment 15166 Review of Systems Const Details: - Cardiovascular: Reports hypertension. Denies chest pain. - Musculoskeletal: Reports knee pain. Denies other joint pain. - Endocrine: Reports prediabetes. Denies diabetes. All systems reviewed & are unremarkable except as noted in HPI and below Physical exam (Primary Care) Vital Signs: Last Vital Signs Temp 97.3 F 04/13/25 08:54 Pulse 97 04/13/25 08:54 Resp 20 04/13/25 08:54 BP 166/96 H 04/13/25 08:54 Pulse Ox 97 04/13/25 08:54 Oxygen Delivery Method Room Air 04/13/25 08:54 Care Plan Goal for BP management: <140/90 at Goal BMI result Body Mass Index 37.3 BMI Assessment/Plan discussion: High BMI High, discussed plan: lifestyle, weight reduction, dietary, physical activity and alcohol moderation Tobacco/Smoking Status: Tobacco use Status Tobacco use date assessed 03/12/25 04/13/25 08:59 Patient Tobacco Use Status Never used Tobacco 04/13/25 08:59 PHQ-9: PHQ-9 Score PHQ-9: Total score 0 04/13/25 09:33 Depression Screening Interpretation: Negative Thrive Assessment: Date of Thrive Assessment Date Thrive assessed 03/12/25 04/13/25 08:59 Const Other: Appearance: Alert. Oriented X3. No acute distress. Head: Normal external exam. Normocephalic. Atraumatic. Eyes: Pupils are equal, round, and reactive to light. Extraocular movements intact. Conjunctiva and sclera normal. Eyelids normal. Throat: Pharynx normal. Uvula midline. Moist mucous membranes. Neck: Normal inspection. Neck supple. Full range of motion. Cardiovascular: Heart rate slightly elevated due to anxiety. Heart sound normal. No murmurs noted. Pulses normal throughout. Respiratory: No respiratory distress. Painless inspiration. Breath sounds normal. No wheezes/rales/rhonchi noted. Chest nontender. No accessory muscle usage noted or decreased air movement noted. Back: Full range of motion noted. Skin: Skin warm and dry. Normal skin color. Normal skin turgor. No rashes/lesions/lacerations noted. Extremities: No lower extremity edema. Right leg STS noted due to varicose veins. Extremities exhibit normal range of motion. Extremities nontender. Neuro: Oriented X 3. No motor deficit. No sensory deficit. Reflexes normal. Results Reviewed Results Reviewed: - Labs: Hemoglobin A1c 5.7%, indicating prediabetes. - Tests: Negative Cologuard test for colon cancer screening. - Imaging: Knee X-ray showing mild medial compartment osteoarthrosis and suprapatellar bursa fluid. Coding Level of Care Code Est Pt Level 4 (22704) Complex EM visit Add On G2211 Diagnoses Elevated blood pressure reading R03.0 Osteoarthrosis of knee M17.9 Varicose veins of both legs with edema I83.893 Prediabetes R73.03 Colon cancer screening Z12.11 Additional Codes DENISE-7 Assessment Billing - DENISE-7 Assessment Tool: DENISE-7 Assessment 89962 ([id number]) PHQ-9 - 68732 - PHQ-9 Billing: Yes ([id number]) Assessment & Plan Assessment & Plan (1) Elevated blood pressure reading: Code(s): R03.0 - Elevated blood-pressure reading, without diagnosis of hypertension Category: Medical Plan: The patient is advised to continue monitoring her blood pressure at home and consider using an automatic blood pressure monitor for more consistent readings. Follow-up appointments will be scheduled as needed based on her home readings. (2) Osteoarthrosis of knee: Code(s): M17.9 - Osteoarthritis of knee, unspecified Category: Medical Plan: The patient is awaiting further evaluation and treatment planning, which may include physical therapy after other interventions are completed. (3) Varicose veins of both legs with edema: Code(s): I83.893 - Varicose veins of bilateral lower extremities with other complications Category: Medical Plan: The patient is using compression stockings and is scheduled for a venous duplex ultrasound to assess the veins and determine the need for any surgical intervention. (4) Prediabetes: Code(s): R73.03 - Prediabetes Category: Medical Plan: The patient is advised to continue dietary changes to reduce sugar and carbohydrate intake, aiming to prevent progression to diabetes. A follow-up hemoglobin A1c test is recommended in three to six months to monitor her status. (5) Colon cancer screening: Onset Date: ~03/19/25 Code(s): Z12.11 - Encounter for screening for malignant neoplasm of colon Category: Medical Plan: The patient has completed a Cologuard test, which returned negative results, and no further immediate action is required. Plan Plan Patient was informed and verbally consented to the use of an ambient scribe for clinic note documentation during this visit. 1. Essential Hypertension The patient is advised to continue monitoring her blood pressure at home and consider using an automatic blood pressure monitor for more consistent readings. Follow-up appointments will be scheduled as needed based on her home readings. 2. Osteoarthritis Of The Knee The patient is awaiting further evaluation and treatment planning, which may include physical therapy after other interventions are completed. 3. Varicose Veins The patient is using compression stockings and is scheduled for a venous duplex ultrasound to assess the veins and determine the need for any surgical intervention. 4. Prediabetes The patient is advised to continue dietary changes to reduce sugar and carbohydrate intake, aiming to prevent progression to diabetes. A follow-up hemoglobin A1c test is recommended in three to six months to monitor her status. 5. Preventative Care: Colon Cancer Screening With Stool Test The patient has completed a Cologuard test, which returned negative results, and no further immediate action is required. During the visit, we discussed the patient's hypertension management, emphasizing the importance of regular monitoring and the potential use of an automatic blood pressure monitor for accuracy. We reviewed her knee osteoarthritis, noting the need for further evaluation and possible physical therapy. The patient was informed about the upcoming venous duplex ultrasound for her varicose veins and the dietary changes necessary to manage her prediabetes. We also confirmed the negative result of her recent Cologuard test, indicating no immediate concerns for colon cancer. Patient Instructions: - Continue monitoring blood pressure at home and consider using an automatic monitor. - Follow dietary changes to reduce sugar and carbohydrate intake. - Attend scheduled venous duplex ultrasound for varicose veins assessment. - Schedule follow-up appointments as needed based on home blood pressure readings.
[2025-04-13 08:54] VITALS: BP 138/79; PULSE 97; RESP 20; TEMP 36.3; O2SAT 97; BMI 37.3
--- OUTSIDE RECORDS SUMMARY | 2025-04-13 09:26 | XMS_ITS | Clinical Summary ---
Author Organization [facility] Address [address] [place] [phone] Phone Care Team Providers Care Safemaker Name Role Phone Pcp, Unknown Primary Care [...] RESULT ENTRY ONLY (12/27/2018) HM Mammogram neg [facility] Provider HEALTH MAINTENANCE Final Result * Outside HDL (10/29/2012) HDL - External 66 40 - 80 mg/dL [facility] Provider LAB BLOOD ORDERABLES Shanita l Result * PAP SMEAR FOR RESULT ENTRY ONLY (10/24/2011) Pap smear neg Historical Provider HEALTH MAINTENANCE Final Result from Last 3 Months or Most Recently Relevant to Health Maintenance Insurance [facility] [employer] [facility] DIRECT Care Teams Safemaker Relationship Specialty Start Date End Date Pcp, Unknown PCP - General 03/13/23 Additional Source Comments The information contained in this document represents components of the legal health record. It is not the complete legal health record.[facility]
== END 2025-04-13 09:31 | disposition home or self-care (01) ==
LOC: HO.HMCSH 08:53
PROVIDERS: PCP Physician Assistant Medical; Visit Provider Physician Assistant Medical
DX: R03.0 Elevated blood-pressure reading, without diagnosis of hypertension (principal); M17.9 Osteoarthritis of knee, unspecified; I83.893 Varicose veins of bilateral lower extremities with other complications; R73.03 Prediabetes; Z12.11 Encounter for screening for malignant neoplasm of colon

== ENCOUNTER → 2025-04-13 08:53 | Outpatient (BNVA) | payer OTHER, SELFPAY | PROVIDERS: PCP Physician Assistant Medical; Visit Provider Physician Assistant Medical | DX: Z00.00 Encounter for general adult medical examination without abnormal findings (principal); M79.89 Other specified soft tissue disorders; M79.604 Pain in right leg; I83.893 Varicose veins of bilateral lower extremities with other complications; R73.03 Prediabetes; I10 Essential (primary) hypertension; R03.0 Elevated blood-pressure reading, without diagnosis of hypertension; M17.9 Osteoarthritis of knee, unspecified | CPT/HCPCS: 96127 ==

== ENCOUNTER 2025-05-13 08:06 | Outpatient (REF) | payer OTHER, SELFPAY ==
--- NOTE | ~2025-05-13 | US_ITS ---
EXAMINATION: US LOWER EXTREMITY VENOUS (REFLUX EXAM), BILATERAL CLINICAL INFORMATION: Varices. COMPARISON: None. TECHNIQUE: Color flow triplex imaging and compression Doppler was performed to evaluate both the deep and the superficial systems bilaterally. To evaluate the superficial system, the examination was performed in the upright position. Color-flow Doppler ultrasound and compression ultrasound were utilized. In addition, maneuvers were utilized to demonstrate reflux. FINDINGS: 1. DEEP VENOUS ULTRASOUND OF THE RIGHT LOWER EXTREMITY: Common Femoral Vein: Compressible, normal respiratory variation and augmented flow. Femoral Vein: Compressible, normal color flow and augmentation. Popliteal Vein: Compressible, normal augmentation. Deep Reflux: There is no evidence of reflux in the deep system in either the common femoral vein, superficial femoral or the popliteal vein. 2 cm lobulated anechoic lesion without flow on color Doppler interrogation in the popliteal fossa. 2. SUPERFICIAL ULTRASOUND WITH DOPPLER OF RIGHT LOWER EXTREMITY: GREAT SAPHENOUS VEIN: Saphenofemoral Junction: 1.4 cm; Reflux: 2980 ms Proximal Thigh: 0.4 cm; Reflux: 0 ms Mid Thigh: 0.2 cm; Reflux: 0 ms Distal Thigh: 0.3 cm; Reflux: 0 ms At Knee: 0.4 cm; Reflux: 0 ms Proximal Calf: 0.8 cm; Reflux: 2092 ms Mid Calf: 0.4 cm; Reflux: 1308 ms Distal Calf: 0.2 cm; Reflux: 0 ms DUPLICATED MEDIAL GREAT SAPHENOUS VEIN: Diameter: None imaged Reflux: NA DUPLICATED LATERAL GREAT SAPHENOUS VEIN: Diameter: None imaged Reflux: NA SMALL SAPHENOUS VEIN: Saphenopopliteal Junction: 0.4 cm; Reflux: 0 ms Proximal: 0.3 cm; Reflux: 0 ms Distal: 0.3 cm; Reflux: 0 ms VEIN OF GIACOMINI: Size: 0.3 cm. Reflux: NA PERFORATORS: Location: Small saphenous vein mid and distal segment. Great saphenous vein proximal and distal thigh and proximal and mid calf. Size: 0.2-0.4 cm. Reflux: NA VARICOSITIES: Location: Great saphenous vein at proximal thigh, at the knee and proximal calf. Size: 0.4 and 0.9 cm. Reflux: 2800 ms in the proximal thigh, 2796 ms at the knee and 2160 ms in the proximal calf. 3. DEEP VENOUS ULTRASOUND OF THE LEFT LOWER EXTREMITY: Common Femoral Vein: Compressible, normal respiratory variation and augmented flow. Femoral Vein: Compressible, normal color flow and augmentation. Popliteal Vein: Compressible, normal augmentation. Deep Reflux: There is no evidence of reflux in the deep system in either the common femoral vein, superficial femoral or the popliteal vein. There is no evidence of a Gomez's cyst. 4. SUPERFICIAL ULTRASOUND WITH DOPPLER OF LEFT LOWER EXTREMITY: GREAT SAPHENOUS VEIN: Saphenofemoral Junction: 0.7 cm; Reflux: 0 ms Proximal Thigh: 0.5 cm; Reflux: 0 ms Mid Thigh: 0.2 cm; Reflux: 0 ms Distal Thigh: 0.2 cm; Reflux: 0 ms At Knee: 0.1 cm; Reflux: 0 ms Proximal Calf: 0.1 cm; Reflux: 0 ms Mid Calf: 0.1 cm; Reflux: 0 ms Distal Calf: 0.1 cm; Reflux: 0 ms DUPLICATED MEDIAL GREAT SAPHENOUS VEIN: Diameter: None imaged Reflux: NA DUPLICATED LATERAL GREAT SAPHENOUS VEIN: Diameter: 0.3 cm. Reflux: NA SMALL SAPHENOUS VEIN: Saphenopopliteal Junction: 0.2 cm; Reflux: 0 ms Proximal: 0.2 cm; Reflux: 0 ms Distal: 0.1 cm; Reflux: 0 ms VEIN OF GIACOMINI: Size: 0.2 cm. Reflux: NA PERFORATORS: Location: Small saphenous vein mid segment. Size: 0.2 cm. Reflux: NA VARICOSITIES: Location: None Imaged Size: NA Reflux: NA US/US venous duplex LE BI IMPRESSION: Right: Venous insufficiency, great saphenous vein at the saphenous vein junction, below the knee and mid calf. Varices in the great saphenous vein with reflux in the proximal thigh, knee and proximal calf. 2 cm right popliteal cyst.. Left: No venous insufficiency. Perforators without reflux. Electronically signed by: Aashish Leal MD 05/13/2025 10:42 AM EDT
--- OUTSIDE RECORDS SUMMARY | 2025-05-13 08:26 | XMS_ITS | Clinical Summary ---
Author Organization [facility] Address [address] [place] [phone] Phone Care Team Providers Care Hotel Maintenance Worker Name Role Phone Pcp, Unknown Primary Care [...] RESULT ENTRY ONLY (12/27/2018) HM Mammogram neg [facility] Provider HEALTH MAINTENANCE Final Result * Outside HDL (10/29/2012) HDL - External 66 40 - 80 mg/dL [facility] Provider LAB BLOOD ORDERABLES Shanita l Result * PAP SMEAR FOR RESULT ENTRY ONLY (10/24/2011) Pap smear neg Historical Provider HEALTH MAINTENANCE Final Result from Last 3 Months or Most Recently Relevant to Health Maintenance Insurance [facility] [employer] [facility] DIRECT Care Teams Hotel Maintenance Worker Relationship Specialty Start Date End Date Pcp, Unknown PCP - General 03/13/23 Additional Source Comments The information contained in this document represents components of the legal health record. It is not the complete legal health record.[facility]
== END 2025-05-13 08:07 | disposition home or self-care (01) ==
LOC: HO.US 08:06
PROVIDERS: PCP Internal Medicine; Visit Provider Physician Assistant Medical
DX: I83.11 Varicose veins of right lower extremity with inflammation (principal)
CPT/HCPCS: 93970

== ENCOUNTER → 2025-05-13 08:09 | Outpatient (BNV) | payer OTHER, SELFPAY | PROVIDERS: PCP Internal Medicine; Visit Provider Radiology Diagnostic Radiology | DX: I87.2 Venous insufficiency (chronic) (peripheral) (principal); M71.21 Synovial cyst of popliteal space [Baker], right knee | CPT/HCPCS: 93970 ==

== ENCOUNTER 2025-05-19 09:09 | Outpatient (AMB) | payer OTHER, SELFPAY ==
--- NOTE | 2025-05-19 09:15 | A.OFFVIS_ITS ---
Vital Signs 05/19/25 09:20 Height 5 ft 10 in Weight 276 lb BMI 39.6 Intake Visit Reasons: Follow up 05/13 Intake Note: follow up US 05/13/25. Pt states she has painful swelling around the right knee. Pt also has large VV. Wears compression daily. 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 She reports increased swelling and discomfort, particularly on the right side, with a large cluster of varicosities on the right medial thigh. The condition has been evaluated with an ultrasound, revealing an accessory vein on the right side that requires treatment. The patient has no known allergies to tape or adhesive materials. She has no personal history of blood clots, although she is aware of a hereditary component as her mother had similar issues. The patient is physically active, engaging in activities such as walking dogs and camping, which she reports doing regularly. COUNT INCLUDES THE [facility] Medical History Prediabetes Suprapatellar bursitis of right knee Osteoarthrosis of knee Colon cancer screening (~03/19/25) Breast cancer screening Preventative health care Establishing care with new doctor, encounter for Elevated blood pressure reading Morbid obesity with BMI of 40.0-44.9, adult Varicose veins of both legs with edema Right leg pain Right leg swelling Family History Father No problems noted. Mother No problems noted. Social History Housing: House Alcohol intake: current Alcohol intake frequency: holidays/special occasions only Patient Tobacco Use Status: Never used Tobacco service: No Current occupational status: unemployed Cognitive needs: No Hearing needs: No Vision needs: Yes (rx glasses) Review of Systems Const Reports as per HPI ENT Reports no additional complaints Card Denies chest pain, Denies chest pain at rest and Denies chest pain with activity Resp Denies chest congestion and Denies cough GI Reports no additional complaints Musc Details: pain over varicosities, aching of lower extremities, swelling, cramping, heaviness and tiredness, itching Denies abnormal gait Skin/Breast Reports pruritus and Denies wounds Neuro Reports no additional complaints and Denies abnormal gait Psych Denies no additional complaints Physical Exam Vital Signs: BMI result Body Mass Index 39.6 Const General: cooperative, healthy appearing and comfortable Orientation/consciousness: oriented to person, oriented to place and oriented to time Neck Carotids: no bruits Chest Chest palpation & inspection: normal inspection of the chest and normal palpation of entire chest wall Resp Effort & Inspection: normal respiratory effort and able to speak in complete sen tences Cardio Rate: regular rate Heart sounds: S1 normal heart sound present and S2 normal heart sound present Peripheral pulses: Peripheral pulses 2+ throughout GI Inspection: Yes normal to inspection Skin Other: +2 edema, large rope-like varicosities greater than 4 mm right thigh. CEAP Classification C4 - skin color changes Ep - Etiology Primary As - superficial veins P - reflux General skin exam: dry skin Neuro General: oriented to person, oriented to place and oriented to time Extrem Right lower extremity: full ROM, normal capillary refill and edema Left lower extremity: full ROM, normal capillary refill and edema Psych Mental Status: mental status grossly normal Results Reviewed Results Reviewed: Brief summary of venous insufficiency testing is as follows: right great saphenous vein: Positive right small saphenous vein: negative right accessory vein: Present and positive left great saphenous vein: negative left small saphenous vein: negative left accessory vein: none present Please note there is no evidence of any venous aneurysms or significant tortuosity Assessment & Plan Assessment & Plan (1) Varicose veins of right lower extremity with inflammation: Code(s): I83.11 - Varicose veins of right lower extremity with inflammation Category: Medical Plan: This patient has varicose veins with inflammation. They continue to be a source of discomfort for the patient. The patient has tried conservative treatment with compression, leg elevation and exercise program for over 3 months time. They have been compliant with all treatment. This has provided minimal relief for the patient. I do not anticipate this course of treatment will alter the underlying etiology. The patient has been scheduled for lower extremity venous treatment inclusive of --- right great saphenous vein Cyanoacralate ablation. Risks, benefits, and complications of this procedure has been discussed in detail with the patient including but not limited to bleeding, infection, and the development of a DVT. The patient has demonstrated a clear understanding and has consented. We will schedule the patient as soon as possible. Thank you for allowing us to participate in this patient's care. If there are any questions or concerns please do not hesitate to contact us. Coding Level of Care Code Est Pt Level 4 (80093) Diagnoses Varicose veins of right lower extremity with inflammation I83.11
[2025-05-19 09:20] VITALS: BMI 39.6
== END 2025-05-19 09:49 | disposition home or self-care (01) ==
LOC: HO.HVS 09:10
PROVIDERS: PCP Physician Assistant Medical; Visit Provider Surgery Vascular Surgery
DX: I83.11 Varicose veins of right lower extremity with inflammation (principal)
CPT/HCPCS: 99214

== ENCOUNTER 2025-06-12 10:11 | Outpatient (AMB) | payer OTHER, SELFPAY ==
[2025-06-12 10:18] VITALS: BMI 39.6
--- NOTE | 2025-06-12 10:18 | A.OFFVIS_ITS ---
Vital Signs 06/12/25 10:18 Height 5 ft 10 in Weight 276 lb BMI 39.6 Intake Visit Reasons: Right Venaseal Application Software Developer Required: No Accompanied by: Self / Same As Patient Allergies No Known Allergies (No Known Allergies*) Allergy (Verified 06/12/25 10:19) [facility] Medical History Prediabetes Suprapatellar bursitis of right knee Osteoarthrosis of knee Colon cancer screening (~03/19/25) Breast cancer screening Preventative health care Establishing care with new doctor, encounter for Elevated blood pressure reading Morbid obesity with BMI of 40.0-44.9, adult Varicose veins of both legs with edema Right leg pain Right leg swelling Family History Father No problems noted. Mother No problems noted. Social History Housing: House Alcohol intake: current Alcohol intake frequency: holidays/special occasions only Patient Tobacco Use Status: Never used Tobacco service: No Current occupational status: unemployed Cognitive needs: No Hearing needs: No Vision needs: Yes (rx glasses) Physical Exam Vital Signs: BMI result Body Mass Index 39.6 Office Procedures Vascular Office Procedure Details Details: Diagnosis: Right Leg varicose veins with inflammation Procedure: Endovenous Ablation of the right Great Saphenous Vein with VenaSeal Closure System Anesthesia: Local infiltration 5 cc, Service Station Operator: none Estimated Blood Loss: min Specimen: none Duplex ultrasound was used to map out the insufficient saphenous vein, and access was determined and marked on the overlying skin. The depth and diameter of the vein(s) to be treated was documented. The patient was placed supine on the procedure table and the leg was prepped and draped using sterile technique. Ultasound guidance was again used to localize the access site. 1% lidocaine was injected as a local anesthetic in the subcutaneous tissues at the target location in the GSV in the lower leg. Using ultrasound guidance, access was gained at this location with the 19 gauge thin walled access needle and followed by introduction of a short guidewire, location confirmed with ultrasound. A small, 3 mm incision was made at the access site to allow for introduction and p lacement of the 7 Fr x7cm introducer/dilator. The dilator and guidewire were removed. The 0.035 guidewire from the VenaSeal kit was then introduced and positioned at the saphenofemoral junction using ultrasound guidance. The 80 cm 7 Fr introducer sheath/dilator was positioned 5cm from the saphenofemoral junction. The guidewire and dilator were removed, and the remaining sheath was flushed with sterile saline, with the syringe remaining in place prior to the next steps. The cyanoacrylate adhesive was precisely primed into the 5 F delivery catheter and this catheter/syringe combination was attached within the dispenser gun. This assembly was introduced through the 7F sheath and positioned 5 cm caudal of the saphenofemoral junction under ultrasound guidance. The steps from the IFU were followed for dispensing amounts, locations and compression times, 2 aliquots proximally with 3 minutes of compression, and 1 aliquot every 3 cm distally with 30 sec of compression along the course of the vessel. Following the last injection and compression sequence, the catheter and introducer sheath were pulled out from the access site. Hemostasis was achieved with manual compression and an adhesive bandage was applied to the incision. Ultrasound confirmed complete coaptation and closure of the treated segments of the GSV, and the absence of any DVT at the saphenofemoral junction. Treatment time was approximately 4 minutes and the vein length treated was 10 cm. The drapes were removed and the patient cleaned and prepared for discharge. Post op ultrasound check is scheduled for 48-72 hours and the patient was given written post-op instructions. 15001 - Endoven Ther Chem Adhes 1st All charges added?: Procedure code (CPT) selection complete Assessment & Plan Assessment & Plan (1) Varicose veins of right lower extremity with inflammation: Comment: 06/12/2025 - right great saphenous vein Cyanoacralate ablation Code(s): I83.11 - Varicose veins of right lower extremity with inflammation Category: Medical Plan: See op note Coding Level of Care Code Procedure Only Diagnoses Varicose veins of right lower extremity with inflammation I83.11 CPT Codes Details - Vascular 3: 60554 - Endoven Ther Chem Adhes 1st ([id number])
--- OUTSIDE RECORDS SUMMARY | 2025-06-12 11:26 | XMS_ITS | Clinical Summary ---
Author Organization [facility] Address [address] [place] [id number] Phone Care Team Providers Care Retail Field Representative Name Role Phone Pcp, Unknown Primary Care [...] MAMMOGRAM 12/27/2020 12/27/2018 DEPRESSION SCREENING 02/23/2021 02/24/2020 INFLUENZA VACCINE (#1) 2025 0, 07/13/2014 COVID-19 VACCINE (2 - 2024-2 6 season) 2025 08/15/2021 Adult Td,Tdap Booster 02/13/2028 02/12/2018 , [...] Procedure Name Priority Date/Time Associated Diagnosis Comments MAMMOGRAPHY Routine 12/27/2018 OUTSIDE HDL Routine 10/29/2012 PAP SMEAR FOR RESULT ENTRY ONLY Routine 10/24/2011 from Last 3 Months or Most Recently Relevant to Health Maintenance Results * MAMMOGRAPHY FOR RESULT ENTRY ONLY (12/27/2018) Mammogram neg Historical Provider HEALTH MAINTENANCE Final Result * Outside HDL (10/29/2012) HDL - External 66 40 - 80 mg/dL Historical Provider LAB BLOOD ORDERABLES Shanita l Result * PAP SMEAR FOR RESULT ENTRY ONLY (10/24/2011) Pap smear neg Historical Provider HEALTH MAINTENANCE Final Result from Last 3 Months or Most Recently Relevant to Health Maintenance Insurance [facility] [employer] [facility] [employer] Care Teams Retail Field Representative Relationship Specialty Start Date End Date Pcp, Unknown PCP - General 03/13/23 Additional Source Comments The information contained in this document represents components of the legal health record. It is not the complete legal health record.[facility]
== END 2025-06-12 13:55 | disposition home or self-care (01) ==
LOC: HO.HVS 10:11
PROVIDERS: PCP Physician Assistant Medical; Visit Provider Surgery Vascular Surgery
DX: I83.11 Varicose veins of right lower extremity with inflammation (principal)
CPT/HCPCS: 36482

== ENCOUNTER → 2025-06-12 10:11 | Outpatient (BNVA) | payer OTHER, SELFPAY | PROVIDERS: PCP Physician Assistant Medical; Visit Provider Surgery Vascular Surgery | DX: I83.11 Varicose veins of right lower extremity with inflammation (principal) | CPT/HCPCS: 36482; J2003 ==

== ENCOUNTER 2025-06-25 09:08 | Outpatient (AMB) | payer OTHER, SELFPAY ==
[2025-06-25 09:14] VITALS: BMI 39.6
--- NOTE | 2025-06-25 09:14 | MHC.OFFVIS ---
Vital Signs 06/25/25 09:14 Height 5 ft 10 in Weight 276 lb BMI 39.6 Intake Visit Reasons: 2 week follow up R Venaseal 06/12/25 Intake Note: 2 week follow up Right GSV Venaseal 06/12/25, pt states overall the leg is doing better, sore at times. 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 The patient reports that the leg feels much better than when she initially presented, although there is still some bruising and irritation noted. A phlebitic vein was identified, which is likely a feeder vein that is slightly irritated. The patient underwent a procedure that was reported to have gone well, with no significant complications. She mentioned taking aspirin only once post-procedure, indicating minimal discomfort. The patient was advised to let soap and water run over the affected area during showers to reduce stickiness and irritation. She was also instructed to apply a regular bandage if the area remains slightly open at right leg. She now presents for routine postprocedure follow-up [facility] Medical History Prediabetes Suprapatellar bursitis of right knee Osteoarthrosis of knee Colon cancer screening (~03/19/25) Breast cancer screening Preventative health care Establishing care with new doctor, encounter for Elevated blood pressure reading Morbid obesity with BMI of 40.0-44.9, adult Varicose veins of both legs with edema Right leg pain Right leg swelling Family History Father No problems noted. Mother No problems noted. Social History Housing: House Alcohol intake: current Alcohol intake frequency: holidays/special occasions only Patient Tobacco Use Status: Never used Tobacco service: No Current occupational status: unemployed Cognitive needs: No Hearing needs: No Vision needs: Yes (rx glasses) Review of Systems Const Reports as per HPI ENT Reports no additional complaints Card Denies chest pain, Denies chest pain at rest and Denies chest pain with activity Resp Denies chest congestion and Denies cough GI Reports no additional complaints Musc Details: pain over varicosities, aching of lower extremities, swelling, cramping, heaviness and tiredness, itching Denies abnormal gait Skin/Breast Reports pruritus and Denies wounds Neuro Reports no additional complaints and Denies abnormal gait Psych Denies no additional complaints Physical Exam Vital Signs: BMI result Body Mass Index 39.6 Const General: cooperative, healthy appearing and comfortable Orientation/consciousness: oriented to person, oriented to place and oriented to time Neck Carotids: no bruits Chest Chest palpation & inspection: normal inspection of the chest and normal palpation of entire chest wall Resp Effort & Inspection: normal respiratory effort and able to speak in complete sentences Cardio Rate: regular rate Heart sounds: S1 normal heart sound present and S2 normal heart sound present Peripheral pulses: Peripheral pulses 2+ throughout GI Inspection: Yes normal to inspection Skin Other: +2 edema, large rope-like varicosities greater than 4 mm cluster right calf CEAP Classification C4 - skin color changes Ep - Etiology Primary As - superficial veins P - reflux General skin exam: dry skin Neuro General: oriented to person, oriented to place and oriented to time Extrem Right lower extremity: full ROM, normal capillary refill and edema Left lower extremity: full ROM, normal capillary refill and edema Psych Mental Status: mental status grossly normal Assessment & Plan Assessment & Plan (1) Varicose veins of right lower extremity with inflammation: Comment: 06/12/2025 - right great saphenous vein Cyanoacralate ablation Code(s): I83.11 - Varicose veins of right lower extremity with inflammation Category: Medical Plan: The patient has done extremely well with all venous treatments. Patient's may often experience postprocedure phlebitic episodes and I have discussed with the patient use of warm compresses and NSAIDS if tolerated for pain discomfort. In addition, I have discussed continued conservative measures including use of compression, leg elevation, and exercise. The patient was also given an information sheet regarding appropriate use of compression stockings and future purchases. In addition I did request that she reach back out in a proximally 6 months if the cluster of varicosities in her right calf do not improve. Thank you for allowing us to care for your patient with venous disease. Plan Patient was informed and verbally consented to the use of an ambient scribe for clinic note documentation during this visit. Patient Instructions: - Monitor the leg for any persistent bruising or irritation. - Use soap and water during showers to clean the affected area. - Apply a regular bandage if the area remains open. - Return for evaluation if symptoms persist after six months. Coding Level of Care Code Est Pt Level 3 (34672) Diagnoses Varicose veins of right lower extremity with inflammation I83.11
== END 2025-06-25 09:53 | disposition home or self-care (01) ==
LOC: HO.HVS 09:08
PROVIDERS: PCP Physician Assistant Medical; Visit Provider Surgery Vascular Surgery
DX: I83.11 Varicose veins of right lower extremity with inflammation (principal)
CPT/HCPCS: 99213